=== PATIENT | female | born 1945 | race Caucasian/White ===

== ENCOUNTER → 2019-06-24 | Outpatient (CLI) | payer OTHER, BC ==
[~2019-06-24] MED LIST: ACETAMINOPHEN325 M1 OR; AIRBORNE PO; ALBUTEROL2.5 MG/0.1 IH; ALLEGRA60 MG PO; APAP500 PO; BENADRYL25 MG OR; BENADRYL25 MG PO; CIPROFLOXACIN500 M3 PO; COLACE100 MG PO; DARVOCET-N 1001 EAC1 PO; FLAGYL500 MG PO; IBUPROFEN 600600 M1 PO; LISINOPRIL20 MG PO; LORTAB 5-500 T1 EAC1 PO; NABUMETONE 500500 M1; NORCO 5-325 TA1 EACH PO; SIMVASTATIN40 MG PO; VICODIN PO
== END ==
LOC: SJCVC 10:43
DX: R00.0 Tachycardia, unspecified (principal); I10 Essential (primary) hypertension; R00.2 Palpitations; E78.5 Hyperlipidemia, unspecified; K21.9 Gastro-esophageal reflux disease without esophagitis; M19.90 Unspecified osteoarthritis, unspecified site; E55.9 Vitamin D deficiency, unspecified; Z90.49 Acquired absence of other specified parts of digestive tract; Z79.899 Other long term (current) drug therapy

== ENCOUNTER → 2020-06-29 | Outpatient (CLI) | payer OTHER, BC | LOC: SJCVC 10:27 | PROVIDERS: ATTEND Internal Medicine | DX: R94.31 Abnormal electrocardiogram [ECG] [EKG] (principal); R00.0 Tachycardia, unspecified; I10 Essential (primary) hypertension; E78.5 Hyperlipidemia, unspecified; R00.2 Palpitations; D64.9 Anemia, unspecified; D56.1 Beta thalassemia; K21.9 Gastro-esophageal reflux disease without esophagitis; M19.90 Unspecified osteoarthritis, unspecified site; I34.0 Nonrheumatic mitral (valve) insufficiency; Z79.899 Other long term (current) drug therapy; Z88.1 Allergy status to other antibiotic agents; Z88.8 Allergy status to other drugs, medicaments and biological substances; Z86.39 Personal history of other endocrine, nutritional and metabolic disease ==